=== PATIENT | female | born 1980 | race Caucasian/White ===

== ENCOUNTER 2019-10-25 07:08 | Outpatient (CLI) | payer MEDICARE, OTHER ==
[2019-10-25 13:51] LABS: Hemoglobin 13.9 g/dL (12.0-16.0); Mean Corpuscular HGB CONC 34.2 g/dL (32.0-36.0); Mean Corpuscular Hemoglobin 32.1 pg (27.0-31.0); Mean Corpuscular Volume 93.7 fL (78.0-98.0); Mean Platelet Volume 7.2 fL (7.4-10.4); Platelet Count 259 thou/uL (130-400); RBC Distribution Width 11.9 % (11.5-14.5); Red Blood Cell (RBC) Count 4.32 mill/uL (4.20-5.40)
[2019-10-25 14:07] LABS: Anion Gap 12 mmol/L (10-20); BUN (Urea Nitrogen) 7 mg/dL (7.0-18.7); Calc. Creatinine Clearance 0 mL/min (70-130); Calcium 9.1 mg/dL (7.8-10.44); Carbon Dioxide 25 mmol/L (22-29); Chloride 107 mmol/L (98-107); Estimated GFR-MDRD Greater than 90; Glucose 84 mg/dL (70-105); Potassium 3.4 mmol/L (3.5-5.1); Sodium 141 mmol/L (136-145)
[2019-10-26 17:09] LABS: SARS-CoV-2 MS2 Positive; SARS-CoV-2 N Gene Negative; SARS-CoV-2 S Gene Negative; SARS-CoV-2 orf1ab Negative
--- NOTE | 2019-10-27 16:42 | EKG ---
Test Reason : PREOP Blood Pressure : / mmHG Vent. Rate : 082 BPM Atrial Rate : 082 BPM P-R Int : 124 ms QRS Dur : 098 ms QT Int : 392 ms P-R-T Axes : 064 071 044 degrees QTc Int : 457 ms Normal sinus rhythm Incomplete right bundle branch block Borderline ECG No previous ECGs available Confirmed by EMMA MAZARIEGOS (2) on 10/27/2019 4:42:21 PM Referred By: CESAR Confirmed By:EMMA MAZARIEGOS
== END 2019-10-25 07:09 | disposition home or self-care (01) ==
LOC: LABBT 07:08
PROVIDERS: ATTEND Neurological Surgery
DX: Z01.818 Encounter for other preprocedural examination (principal); Z11.59 Encounter for screening for other viral diseases; M54.12 Radiculopathy, cervical region
CPT/HCPCS: 80048; 85027; 93005; U0003; 87635; 93010

== ENCOUNTER 2019-10-25 13:00 | Inpatient (IN) | payer MEDICARE, OTHER ==
[2019-10-25 13:16] VITALS: BMI 24.0
[2019-10-30] MEDS ORDERED: Midazolam HCl 2 mg/2 ml Vial ONE ×2 (08:04→10:18)
[2019-10-30] MEDS ORDERED: Fentanyl 100 MCG/2 ML VIAL ONE ×3 (09:07→11:06)
[2019-10-30] MEDS ORDERED: Promethazine HCl 25 MG/ML VIAL IM PRN (10:04)
[2019-10-30] MEDS ORDERED: Meperidine HCl/PF 25 MG/ML VIAL SLOW IVP PRN (10:04)
[2019-10-30] MEDS ORDERED: Ondansetron HCl/PF 4 MG/2 ML Vial IVP PRN (10:04)
[2019-10-30] MEDS ORDERED: Promethazine HCl 25 MG/ML VIAL SLOW IVP PRN (10:04)
[2019-10-30] MEDS ORDERED: HYDROmorphone 2 MG/ML VIAL SLOW IVP PRN (10:04)
[2019-10-30] MEDS ORDERED: PACU-Morphine 4MG/ML VIAL SLOW IVP PRN (10:04)
[2019-10-30] MEDS ORDERED: Morphine Sulfate 2 MG/ML SYRINGE SLOW IVP PRN (10:04)
--- NOTE | 2019-10-30 10:28 | OP ---
DATE OF PROCEDURE: 10/30/2019 OCCUP THER: Lashell Buck PA-C PROCEDURES PERFORMED: Exploration of spinal fusion, C5 through C7; removal of hardware, C5 through C7;l anterior cervical diskectomy, C4-C5; interbody arthrodesis, intervertebral biomechanical device, local morselized autograft, demineralized bone matrix, C4-C5. DESCRIPTION OF PROCEDURE: The patient was brought to the operating room and intubation. She was positioned supine with the head in modest extension on gel-filled donut. An incision was made in the right precervical area and dissected medial to the sternocleidomastoid muscle, identified the anterior cervical spine and the previous plate. 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 A complete decompression of this osteophyte was achieved. We next exposed the plate, although it was partially invested by bone throughout its edges. Additionally, the screw heads themselves were invested by bone and I could not adequately remove the screw heads. I therefore aborted further efforts to remove the plate from C5 through C7. We next turned our attention to the C4-C5 disk, which was incised and debrided in multiple fragments and the bony endplates were then decorticated for the purpose of arthrodesis. An appropriate-sized intervertebral biomechanical PEEK device was brought into the field. It was filled with demineralized bone matrix, local morselized autograft, and tapped into place securely at C4-C5. We were not able to place a plate across this region because the previous plate was in the way. The wound was then extensively irrigated and MAC hemostasis was secured and the wound was closed in anatomic layers over drain. Job ID: [id number]
[2019-10-30] MEDS ORDERED: HYDROmorphone 2 MG/ML VIAL ONE ×2 (10:30→11:20)
[2019-10-30] MEDS ORDERED: diphenhydrAMINE 50 MG/ML VIAL ONE (11:23)
[2019-10-30] MEDS ORDERED: Lidocaine 1% PF 5 ML VIAL ONE (12:01)
[2019-10-30] MEDS ORDERED: Glycopyrrolate 0.2 MG/ML 5 ML SYRINGE ONE (12:01)
[2019-10-30] MEDS ORDERED: Dexamethasone 20 MG/5 ML VIAL ONE (12:01)
[2019-10-30] MEDS ORDERED: Ondansetron PF 4 MG/2 ML Vial ONE (12:01)
[2019-10-30] MEDS ORDERED: PROPOFOL 200 MG/20 ML VIAL ONE (12:01)
[2019-10-30] MEDS ORDERED: Rocuronium Bromide 10 MG/ML (10ML VIAL) ONE (12:01)
[2019-10-30] MEDS ORDERED: Promethazine HCl 25 MG/ML VIAL ONE (13:04)
[2019-10-30] MEDS ORDERED: Ondansetron PF 4 MG/2 ML Vial IVP PRN (13:43)
[2019-10-30] MEDS ORDERED: Morphine 2 MG/ML SYRINGE SLOW IVP PRN (13:43)
[2019-10-30] MEDS ORDERED: diphenhydrAMINE 25 MG CAP PO PRN (13:43)
[2019-10-30] MEDS ORDERED: diphenhydrAMINE 50 MG/ML VIAL IVP PRN (13:43)
[2019-10-30] MEDS ORDERED: Mag-Al 1200 mg/1200 mg/30 ML UDCUP PO PRN (13:43)
[2019-10-30] MEDS ORDERED: HYDROcodone/Acetaminophen 10/325 mg Tablet PO PRN (13:43)
[2019-10-30] MEDS ORDERED: traMADol HCl 50 MG TAB PO PRN ×2 (13:43)
[2019-10-30] MEDS ORDERED: Promethazine 25 MG TAB PO PRN ×2 (13:43→13:51)
[2019-10-30] MEDS ORDERED: Promethazine HCl 12.5 MG SUPP PR PRN (13:43)
[2019-10-30] MEDS ORDERED: Milk Of Magnesia 30 ML UDCUP PO PRN (13:43)
[2019-10-30] MEDS ORDERED: CEFAZOLIN 2 GM in Premix Bag 1 BAG IVPB SCH (14:00)
[2019-10-30] MEDS: Pregabalin 75 MG CAP PO SCH ×2 (14:50→21:04)
[2019-10-30] MEDS: Sodium Chloride 0.9% 1,000 ML IV SCH (14:51)
[2019-10-30] MEDS: tiZANidine HCl 4 MG TAB PO PRN ×2 (14:54→21:07)
[2019-10-30] MEDS: CEFAZOLIN 2 GM in Premix Bag 1 BAG IVPB SCH ×2 (14:54→23:31)
[2019-10-30] MEDS: busPIRone HCl 10 MG TAB PO SCH (18:23)
[2019-10-30] MEDS ORDERED: Prazosin HCl 1 MG CAP PO SCH (21:00)
[2019-10-30] MEDS: Trospium 20 MG TAB PO SCH (21:04)
[2019-10-30] MEDS: HYDROcodone/Acetaminophen 10/325 mg Tablet PO PRN (21:07)
[2019-10-30] MEDS: Promethazine HCl 25 MG/ML VIAL IM PRN (23:31)
[2019-10-31] MEDS: HYDROcodone/Acetaminophen 10/325 mg Tablet PO PRN ×2 (01:18→06:29)
[2019-10-31] MEDS: tiZANidine HCl 4 MG TAB PO PRN (03:46)
[2019-10-31] MEDS: Sodium Chloride 0.9% 1,000 ML IV SCH (03:56)
[2019-10-31] MEDS: busPIRone HCl 10 MG TAB PO SCH (06:29)
[2019-10-31] MEDS: Pregabalin 75 MG CAP PO SCH (07:15)
[2019-10-31] MEDS: Promethazine HCl 25 MG/ML VIAL IM PRN (07:18)
[2019-10-31] MEDS: Trospium 20 MG TAB PO SCH (07:32)
[2019-10-31] MEDS: CEFAZOLIN 2 GM in Premix Bag 1 BAG IVPB SCH (07:32)
[2019-10-31 08:17] VITALS: BP 109/72; TEMP 98
[2019-10-31] MEDS ORDERED: Loratadine 10 MG TAB PO SCH (09:00)
[2019-10-31] MEDS ORDERED: Fluticasone Propionate Nasal Spray 16 gm Bottle NASAL SCH (09:00)
[2019-10-31] MEDS ORDERED: Docusate 100 MG CAP PO SCH (09:00)
--- NOTE | 2019-10-31 12:16 | DIS ---
DATE OF ADMISSION: 10/30/2019 DATE OF DISCHARGE: 10/31/2019 The patient is a 39-year-old female, recently evaluated by us for progressive neck pain. She was found to have increased degenerative changes and osteophyte formation above her prior fusion at C4-C5. She underwent removal of hardware and C4-C5 ACDF on 10/30/2019. Unfortunately, her old hardware was unable to be removed. We still obtained adequate decompression at C4-C5 and she was placed in a C-collar following the surgery. A BARRETT drain was placed intraoperatively with minimal output over the first night, 20 mL. On postoperative day 1, the patient was sitting up, awake, alert, in no acute distress. She has free active range of motion of all extremities. No focal motor weakness. She has a small amount of red blood in the BARRETT drain. We will plan to dismiss the patient to home. I have discussed home care and we will plan to keep her in a cervical collar for the next 8 weeks. I have discussed restrictions and provided her scripts for [place] and Zanaflex. We will follow up in 2 weeks. Job ID: [id number]
== END 2019-10-31 08:40 | disposition home or self-care (01) | DRG 473 ==
LOC: SURG A 10-30 06:04
PROVIDERS: ADMIT Neurological Surgery; ATTEND Neurological Surgery
PROC: 0RG10AJ Fusion of Cervical Vertebral Joint with Interbody Fusion Device, Posterior Approach, Anterior Column, Open Approach (ICD-10-PCS; principal; 2019-10-30)
PROC: 0RB30ZZ Excision of Cervical Vertebral Disc, Open Approach (ICD-10-PCS; 2019-10-30)
PROC: 00PV0JZ Removal of Synthetic Substitute from Spinal Cord, Open Approach (ICD-10-PCS; 2019-10-30)
DX: M50.121 Cervical disc disorder at C4-C5 level with radiculopathy (principal); M47.22 Other spondylosis with radiculopathy, cervical region; Z11.59 Encounter for screening for other viral diseases; M25.78 Osteophyte, vertebrae; G43.909 Migraine, unspecified, not intractable, without status migrainosus; J30.2 Other seasonal allergic rhinitis; F17.210 Nicotine dependence, cigarettes, uncomplicated; F41.9 Anxiety disorder, unspecified; F32.9 Major depressive disorder, single episode, unspecified; K21.9 Gastro-esophageal reflux disease without esophagitis; Z90.710 Acquired absence of both cervix and uterus; Z88.2 Allergy status to sulfonamides
CPT/HCPCS: 76000; C1776; J0690; J1100; J1170; J1200; J2001; J2250; J2405; J2550; J2704; J3010; J3370; Q0169